=== PATIENT | female | born 1980 | race Caucasian/White ===

== ENCOUNTER 2017-09-12 16:13 | Emergency (ER) | payer OTHER ==
[2017-09-12 17:11] LABS: PLATELET COUNT 253 10^3/uL (150-400)
--- NOTE | 2017-09-12 17:41 | EDPHY ---
H & P Stated Complaint: dizzyness [address] lopez sent for mri/marcelo Time Seen by Provider: 09/12/17 17:00 HPI/ROS: CHIEF COMPLAINT: Dizziness HISTORY OF PRESENT ILLNESS: Patient is a 37-year-old female who is sent here by Dr. Lopez from Neurology for MRI. The patient is healthy 37-year-old who began having persistent vertigo symptoms in the middle of June. It is exacerbated by looking down or side to side but not up. She saw her primary who thought it was benign positional vertigo. She has taken meclizine and done multiple Mei maneuvers without success. She states that her symptoms usually only last for a few seconds if she stays still and look straight head. She also complains of ringing in her right ear and pulsatile noises in her left ear. Today she saw Dr. Lopez from Neurology who also felt that she had unequal pupils and sent her here to the ER for MRI imaging to rule out mass or dissection. She has not had a fever. She has not had any trauma. REVIEW OF SYSTEMS: Constitutional: denies: chills, fever, recent illness, recent injury EENTM: denies: blurred vision, double vision, nose congestion Respiratory: denies: cough, shortness of breath Cardiac: denies: chest pain, irregular heart rate, lightheadedness, palpitations Gastrointestinal/Abdominal: denies: abdominal pain, diarrhea, nausea, vomiting, blood streaked stools Genitourinary: denies: dysuria, frequency, hematuria, pain Musculoskeletal: denies: joint pain, muscle pain Skin: denies: lesions, rash, jaundice, bruising Neurological: See HPI Hematologic/Lymphatic: denies: blood clots, easy bleeding, easy bruising Immunologic/allergic: denies: HIV/AIDS, transplant EXAM: GENERAL: Well-appearing, well-nourished and in no acute distress. HEAD: Atraumatic, normocephalic. EYES: Pupils equal round and reactive to light, extraocular movements intact, sclera anicteric, conjunctiva are normal. ENT: TMs normal, nares patent, oropharynx clear without exudates. Moist mucous membranes. NECK: Normal range of motion, supple without lymphadenopathy or JVD. LUNGS: Breath sounds clear to auscultation bilaterally and equal. No wheezes rales or rhonchi. HEART: Regular rate and rhythm without murmurs, rubs or gallops. ABDOMEN: Soft, nontender, normoactive bowel sounds. No guarding, no rebound. No masses appreciated. BACK: No CVA tenderness, no spinal tenderness, step-offs or deformities EXTREMITIES: Normal range of motion, no pitting or edema. No clubbing or cyanosis. NEUROLOGICAL: Cranial nerves II through XII grossly intact. Normal speech, normal gait. 5/5 strength, normal movement in all extremities, normal sensation PSYCH: Normal mood, normal affect. SKIN: Warm, dry, normal turgor, no visible rashes or lesions. Source: Patient Exam Limitations: No limitations - Personal History LMP (Females 10-55): 8-14 Days Ago Current Tetanus/Diphtheria Vaccine: Yes - Medical/Surgical History Hx Asthma: No Hx Chronic Respiratory Disease: No Hx Diabetes: No Hx Cardiac Disease: No Hx Renal Disease: No Hx Cirrhosis: No Hx Alcoholism: No Hx HIV/AIDS: No Other PMH: denies - Family History Significant Family History: No pertinent family hx - Social History Smoking Status: Never smoked Alcohol Use: None Drug Use: None Constitutional: Initial Vital Signs Temperature (C) 36.6 C 09/12/17 16:28 Heart Rate 116 H 09/12/17 16:28 Respiratory Rate 17 09/12/17 16:28 Blood Pressure 129/64 H 09/12/17 16:28 O2 Sat (%) 96 09/12/17 16:28 O2 Delivery Mode Room Air Allergies/Adverse Reactions: pain killers Allergy (Uncoded 09/12/17 16:28) Home Medications: Medication Instructions Recorded NK [No Known Home Meds] 09/12/17 Medical Decision Making - Diagnostics Imaging Results: Imaging Impressions Brain MRI 09/12/17 17:00 Impression: 1. Multiple nonspecific hyperintense T2/FLAIR signal abnormalities in the white matter of bilateral cerebral hemispheres. Differential diagnosis includes vasculitis, mild microvascular ischemic gliosis, migraine-related sequela, atypical demyelinating disease, or postinfectious/postinflammatory sequela. 2. No acute infarct, acute hemorrhage, hydrocephalus, or mass effect. Findings and recommendations discussed with Emergency Department physician, Enrique Ba M.D., at 1839 hours, on September 12, 2017. Final report concurs with initial preliminary interpretation. Imaging: Discussed imaging studies w/ rn urology Radiologist ED Course/Re-evaluation: I spoke with Radiology. Because the patient is trying to get and may be 2 or 3 days although her test is negative they recommend she does not get gadolinium. They will do the MRI without but then do CT angio of head and neck. 7:20 p.m. the patient's imaging is reassuring however she does have some nonspecific white matter disease on her MRI. I will page her neurologist Dr. Lopez. 7:45 p.m. I spoke with Dr. Lopez. She will discussed the images with Dr. Chacon. 8:15 p.m. I spoke again with Dr. Lopez. She has spoken with Dr. Cortez about the images. They are very minimal. She will review the images tomorrow and call the patient for follow-up. The patient and understand agree with this plan. They feel reassured. Differential Diagnosis: Partial list of the Differential diagnosis considered include but were not limited to; ischemia, MS, mass and although unlikely based on the history and physical exam, I also considered aneurysm, infection. I discussed these differential diagnoses and the plan with the patient as well as the usual and expected course. The patient understands that the diagnosis is provisional and that in medicine we are not always correct and that further workup is often warranted. Usual and customary warnings were given. All of the patient's questions were answered. The patient was instructed to return to the emergency department should the symptoms at all worsen or return, otherwise to followup with the physician as we discussed. - Data Points Laboratory Results: Laboratory Results 09/12/17 16:50 09/12/17 16:50 Departure - Departure Disposition: Home, Routine, Self-Care Clinical Impression: Dizzy spells Condition: Fair Instructions: Vertigo (ED) Referrals: Arleen Lara MD [Primary Care Provider] - As per Instructions Rosalia Lopez DO [Non Staff and Non MD] - As per Instructions
[2017-09-12] MEDS ORDERED: IOPAMIDOL (ISOVUE 370) 100 ML BTL IV ONE (17:48)
[2017-09-12 18:45] VITALS: RESP 16
[2017-09-12 20:38] VITALS: BP 98/62; PULSE 84; TEMP 99.5; O2SAT 99
== END 2017-09-12 20:37 | disposition home or self-care (01) ==
DX: R42 Dizziness and giddiness (principal)
CPT/HCPCS: Q9967